=== PATIENT | female | born 1935 | race Asian ===

== ENCOUNTER 2025-02-03 13:54 | Inpatient (IN) | payer OTHER ==
[2025-02-03 14:52] LABS: ABSOLUTE IMMATURE GRANULOCYTES 0.04 x10^3/uL (0.0-0.031); BASOPHILS # 0.07 x10^3/uL (0.01-0.08); EOSINOPHIL % 2.3 % (0.7-5.8); EOSINOPHILS # 0.23 x10^3/uL (0.04-0.36); MCHC 30.7 g/dl (32.2-35.5); MEAN CELL VOLUME 99.4 fl (79.4-94.8); MEAN PLT VOLUME 8.3 fl (9.4-12.3); MONOCYTE # 0.77 x10^3/uL (0.24-0.86); MONOCYTE % 7.6 % (4.7-12.5); RDW 14.5 % (12.5-17.0)
[2025-02-03 15:14] LABS: GLUCOSE,RANDOM 144.0 mg/dL (74-106)
[2025-02-03 15:15] LABS: TOT PROT 5.8 g/dl (6.4-8.2)
[2025-02-03 15:16] LABS: CO2 27.0 mmol/L (21-32)
[2025-02-03 15:17] LABS: ALK PHOS 146.0 U/L (40-150)
[2025-02-03 15:20] LABS: SGOT/AST 20.0 U/L (5-34); SGPT/ALT 6.0 U/L (0-55)
[2025-02-03 15:21] LABS: CREATININE 0.59 mg/dL (0.55-1.3)
[2025-02-03 17:13] LABS: URINE APPEARANCE Clear; URINE BILIRUBIN Negative (NEGATIVE); URINE COLOR Yellow; URINE GLUCOSE (UA) Negative (NEGATIVE); URINE KETONE Negative (NEGATIVE); URINE LEUK ESTERASE 1+ (NEGATIVE); URINE NITRITE Negative (NEGATIVE); URINE PROTEIN Negative (NEGATIVE); URINE UROBILINOGEN 0.2 mg/dL (0.2-1.0)
[2025-02-03] MEDS ORDERED: ALBUTEROL SO4 HFA INHALER IH PRN (19:10)
[2025-02-03] MEDS ORDERED: ACETAMINOPHEN INJECTION 100 ML ONE (20:07)
[2025-02-03] MEDS: ACETAMINOPHEN 1000 MG/100 ML BAG IVPB SCH (20:09)
[2025-02-03] MEDS: ROSUVASTATIN CA 10 MG TABLET PO SCH (23:01)
[2025-02-03] MEDS: SENNOSIDES 8.6MG TABLET (FP) PO SCH (23:01)
[2025-02-03] MEDS: DOCUSATE SODIUM 100 MG CAPSULE (FP) PO SCH (23:01)
[2025-02-03 23:40] VITALS: BMI 24.1
[2025-02-04] MEDS: BUDESONIDE/FORMETEROL FUMARATE 80/4.5 mcg INHALER IH SCH ×2 (03:07→22:22)
[2025-02-04] MEDS: LACTATED RINGERS SOLUTION 1,000 ML/1,000 ML INFUS.BAG IV SCH (03:07)
[2025-02-04 09:08] LABS: ABSOLUTE IMMATURE GRANULOCYTES 0.12 x10^3/uL (0.0-0.031); BASOPHILS # 0.07 x10^3/uL (0.01-0.08); EOSINOPHIL % 2.2 % (0.7-5.8); EOSINOPHILS # 0.21 x10^3/uL (0.04-0.36); MCHC 32.3 g/dl (32.2-35.5); MEAN CELL VOLUME 98.0 fl (79.4-94.8); MEAN PLT VOLUME 8.6 fl (9.4-12.3); MONOCYTE # 0.73 x10^3/uL (0.24-0.86); MONOCYTE % 7.5 % (4.7-12.5); RDW 14.4 % (12.5-17.0)
[2025-02-04 09:10] LABS: INR 1.05 (0.83-1.09); PROTHROMBIN TIME (PATIENT) 11.6 SEC (9.7-13.0)
[2025-02-04 09:25] LABS: ACTIVATED PTT 30.4 SECONDS (25.2-36.5)
[2025-02-04] MEDS: ESCITALOPRAM OXALATE 10 MG TABLET PO SCH (10:07)
[2025-02-04] MEDS: BACITRACIN ZINC 15 GM TUBE TOPICAL OINTMENT TP SCH (10:10)
[2025-02-04 11:37] LABS: GLUCOSE,RANDOM 106.0 mg/dL (74-106)
[2025-02-04 11:38] LABS: TOT PROT 5.8 g/dl (6.4-8.2)
[2025-02-04 11:39] LABS: CO2 25.0 mmol/L (21-32)
[2025-02-04 11:40] LABS: ALK PHOS 145.0 U/L (40-150)
[2025-02-04 11:43] LABS: CREATININE 0.51 mg/dL (0.55-1.3); SGOT/AST 24.0 U/L (5-34); SGPT/ALT 6.0 U/L (0-55)
[2025-02-04] MEDS ORDERED: LACTATED RINGERS SOLUTION 1,000 ML IV SCH (16:30)
[2025-02-04] MEDS ORDERED: PROPOFOL 20 ML ONE (16:51)
[2025-02-04] MEDS ORDERED: ONDANSETRON 4 MG/2 ML VIAL ONE (16:51)
[2025-02-04] MEDS ORDERED: SUCCINYLCHOLINE CHLORIDE 200 MG/10 ML SYRINGE ONE (16:59)
[2025-02-04] MEDS ORDERED: ALBUTEROL SO4 HFA INHALER IH PRN (17:35)
[2025-02-04] MEDS: LACTATED RINGERS SOLUTION 1,000 ML IV SCH (17:52)
[2025-02-04] MEDS: ACETAMINOPHEN 1000 MG/100 ML BAG IVPB SCH (20:00)
[2025-02-04] MEDS: ROSUVASTATIN CA 10 MG TABLET PO SCH (22:20)
[2025-02-04] MEDS: SENNOSIDES 8.6MG TABLET (FP) PO SCH (22:22)
[2025-02-04] MEDS: DOCUSATE SODIUM 100 MG CAPSULE (FP) PO SCH (22:22)
[2025-02-05] MEDS: ESCITALOPRAM OXALATE 10 MG TABLET PO SCH (11:18)
[2025-02-05] MEDS: BACITRACIN ZINC 15 GM TUBE TOPICAL OINTMENT TP SCH (11:19)
[2025-02-07] MEDS ORDERED: PROPOFOL 20 ML ONE (11:59)
[2025-02-07] MEDS ORDERED: ROCURONIUM BROMIDE 50 MG/5 ML SYRINGE ONE (11:59)
[2025-02-07] MEDS ORDERED: SUCCINYLCHOLINE CHLORIDE 200 MG/10 ML SYRINGE ONE (12:06)
[2025-02-07] MEDS ORDERED: ALBUTEROL SO4 HFA INHALER IH PRN (14:33)
[2025-02-07] MEDS ORDERED: LABETALOL HCL 5 MG/1 ML (100MG/20 ML VIAL) ONE (15:07)
[2025-02-07] MEDS: CEFAZOLIN 1 GM in DEXTROSE 5%-WATER - 50 ML IVPB SCH (17:08)
[2025-02-07] MEDS: ACETAMINOPHEN 1000 MG/100 ML BAG IVPB SCH (20:40)
[2025-02-07] MEDS: ROSUVASTATIN CA 10 MG TABLET PO SCH (22:56)
[2025-02-07] MEDS: SENNOSIDES 8.6MG TABLET (FP) PO SCH (22:56)
[2025-02-07] MEDS: DOCUSATE SODIUM 100 MG CAPSULE (FP) PO SCH (22:56)
[2025-02-07] MEDS: BUDESONIDE/FORMETEROL FUMARATE 80/4.5 mcg INHALER IH SCH (22:57)
[2025-02-08] MEDS: ESCITALOPRAM OXALATE 10 MG TABLET PO SCH (11:13)
[2025-02-08] MEDS: BACITRACIN ZINC 15 GM TUBE TOPICAL OINTMENT TP SCH (11:14)
[2025-02-08] MEDS: ENOXAPARIN NA (PORCINE) 40 MG/0.4 ML DISP.SYRIN SQ SCH (13:53)
[2025-02-08] MEDS: PIPERACILLIN/TAZOB 3.375 GM 3.375 GM in DEXTROSE 5%-WATER - 50 ML IVPB SCH (16:32)
[2025-02-08] MEDS: APIXABAN 2.5 MG TABLET PO SCH (22:11)
[2025-02-09 08:33] LABS: ABSOLUTE IMMATURE GRANULOCYTES 0.04 x10^3/uL (0.0-0.031); BASOPHILS # 0.03 x10^3/uL (0.01-0.08); EOSINOPHIL % 3.2 % (0.7-5.8); EOSINOPHILS # 0.28 x10^3/uL (0.04-0.36); MCHC 30.2 g/dl (32.2-35.5); MEAN CELL VOLUME 102.1 fl (79.4-94.8); MEAN PLT VOLUME 8.6 fl (9.4-12.3); MONOCYTE # 0.77 x10^3/uL (0.24-0.86); MONOCYTE % 8.7 % (4.7-12.5); RDW 15.0 % (12.5-17.0)
[2025-02-09 09:34] LABS: GLUCOSE,RANDOM 120.0 mg/dL (74-106); TOT PROT 4.9 g/dl (6.4-8.2)
[2025-02-09 09:35] LABS: CO2 28.0 mmol/L (21-32)
[2025-02-09 09:37] LABS: ALK PHOS 113.0 U/L (40-150)
[2025-02-09 09:39] LABS: SGOT/AST 26.0 U/L (5-34); SGPT/ALT 6.0 U/L (0-55)
[2025-02-09 09:40] LABS: CREATININE 0.54 mg/dL (0.55-1.3)
[2025-02-10] MEDS: CEFTRIAXONE 2 GM in DEXTROSE 5%-WATER 100 ML IVPB SCH (09:14)
[2025-02-10 09:24] LABS: MCHC 30.6 g/dl (32.2-35.5); MEAN CELL VOLUME 101.6 fl (79.4-94.8); MEAN PLT VOLUME 8.6 fl (9.4-12.3); RDW 15.0 % (12.5-17.0)
[2025-02-10] MEDS: AMINO ACIDS/PROTEIN HYDROLYS 30 ML LIQUID.PKT PO SCH (17:00)
[2025-02-11 08:20] LABS: ABSOLUTE IMMATURE GRANULOCYTES 0.03 x10^3/uL (0.0-0.031); BASOPHILS # 0.05 x10^3/uL (0.01-0.08); EOSINOPHIL % 7.1 % (0.7-5.8); EOSINOPHILS # 0.52 x10^3/uL (0.04-0.36); MCHC 30.5 g/dl (32.2-35.5); MEAN CELL VOLUME 102.9 fl (79.4-94.8); MEAN PLT VOLUME 8.5 fl (9.4-12.3); MONOCYTE # 0.62 x10^3/uL (0.24-0.86); MONOCYTE % 8.5 % (4.7-12.5); RDW 15.0 % (12.5-17.0)
[2025-02-11] MEDS: ACETAMINOPHEN 500 MG TABLET (FP) PO SCH (21:13)
[2025-02-12] MEDS: ACETAMINOPHEN 500 MG TABLET (FP) PO PRN (14:37)
[2025-02-14 08:32] LABS: MCHC 30.3 g/dl (32.2-35.5); MEAN CELL VOLUME 102.9 fl (79.4-94.8); MEAN PLT VOLUME 8.2 fl (9.4-12.3); RDW 15.5 % (12.5-17.0)
[2025-02-15 10:29] VITALS: RESP 18
[2025-02-15 14:17] VITALS: BP 124/62; PULSE 75; TEMP 98.4
== END 2025-02-15 14:49 | DRG 467 ==
LOC: JER 13:54 → JERBED 18:27 → J4S 22:21 → OBSVTOIN 02-04 11:04 → J4S 02-12 15:44
PROVIDERS: ADMIT Student in an Organized Health Care Education/Training Program; ATTEND Internal Medicine
PROC: B548ZZA Ultrasonography of Superior Vena Cava, Guidance (ICD-10-PCS; 2025-02-04)
PROC: 0SS90ZZ Reposition Right Hip Joint, Open Approach (ICD-10-PCS; principal; 2025-02-04 15:00)
PROC: 0SW90JZ Revision of Synthetic Substitute in Right Hip Joint, Open Approach (ICD-10-PCS; 2025-02-07)
PROC: 0SWR0JZ Revision of Synthetic Substitute in Right Hip Joint, Femoral Surface, Open Approach (ICD-10-PCS; 2025-02-07)
PROC: 02HV33Z Insertion of Infusion Device into Superior Vena Cava, Percutaneous Approach (ICD-10-PCS; 2025-02-07)
PROC: 02HV33Z Insertion of Infusion Device into Superior Vena Cava, Percutaneous Approach (ICD-10-PCS; 2025-02-15)
PROC: B548ZZA Ultrasonography of Superior Vena Cava, Guidance (ICD-10-PCS; 2025-02-15)
DX: T84.020A Dislocation of internal right hip prosthesis, initial encounter (principal); I48.92 Unspecified atrial flutter; M96.842 Postprocedural seroma of a musculoskeletal structure following a musculoskeletal system procedure; F03.90 Unspecified dementia, unspecified severity, without behavioral disturbance, psychotic disturbance, mood disturbance, and anxiety; J44.9 Chronic obstructive pulmonary disease, unspecified; M81.0 Age-related osteoporosis without current pathological fracture; W19.XXXA Unspecified fall, initial encounter; Y93.89 Activity, other specified; Y92.129 Unspecified place in nursing home as the place of occurrence of the external cause; Y99.8 Other external cause status; Y83.8 Other surgical procedures as the cause of abnormal reaction of the patient, or of later complication, without mention of misadventure at the time of the procedure; B96.20 Unspecified Escherichia coli [E. coli] as the cause of diseases classified elsewhere
CPT/HCPCS: 36415; 36569; 70450-TC; 71045-TC-FY; 72125-TC; 72170-TC-FY; 73502-TC-RT-FY; 77001-TC-FY; 80053; 81003; 82962; 83735; 84100; 84484; 85025; 85027; 85610; 85730; 86850; 86900; 86901; 87040; 87070; 87086; 87205; 93005; 93010; 94760; 97116-GP; 97161-GP; 99285-25; C1751; C1776; G0378